=== PATIENT | female | born 1965 | race Caucasian/White ===

== ENCOUNTER 2018-02-01 16:21 | Inpatient (IN) | payer MEDICAID, OTHER ==
[2018-02-01] MEDS: LORAZEPAM 2 MG INJ IV ×2 (16:55→20:32)
[2018-02-01] MEDS: KETOROLAC 30 MG INJ IV (16:55)
[2018-02-01 17:04] LABS: ADD MAN DIFF? NO
[2018-02-01 17:14] LABS: WHITE BLOOD COUNT 9.4 10^3/ul (4.8-10.8)
[2018-02-01 17:14] LABS: BASOPHILS % 0.2 % (0.0-2.0); EOSINOPHILS % 0.1 % (0.0-7.0); HEMATOCRIT 34.4 % (37.0-47.0); HEMOGLOBIN 10.1 g/dl (12.0-16.0); LYMPHOCYTES % 10.2 % (15.0-51.0); MEAN CORPUSCULAR HEMOGLOBIN 24.9 pg (29.0-33.0); MEAN CORPUSCULAR HGB CONC 29.4 g/dl (32.0-37.0); MEAN CORPUSCULAR VOLUME 84.7 fl (82.0-101.0); MEAN PLATELET VOLUME 12.9 fl (7.4-10.4); MONOCYTE # 0.3 10^3/ul (0.3-0.9); MONOCYTES % 2.7 % (0.0-11.0); NEUTROPHIL # 8.1 10^3/ul (1.6-7.5); NEUTROPHILS % 86.5 % (39.0-77.0); PLATELET COUNT 124 10^3/UL (140-415); RED BLOOD COUNT 4.06 10^6/ul (4.20-5.40); RED CELL DISTRIBUTION WIDTH 17.2 % (11.5-14.5)
[2018-02-01 17:25] LABS: INR 1.17; PROTIME 15.1 Sec (11.9-14.9); PT RATIO 1.2
[2018-02-01 17:26] LABS: PARTIAL THROMBOPLASTIN TIME 33.1 Sec (25.0-35.0)
[2018-02-01 17:31] LABS: ALANINE AMINOTRANSFERASE 28 IU/L (13-69); ALBUMIN 4.2 g/dl (3.3-4.9); ALBUMIN/GLOBULIN RATIO 0.85; ALKALINE PHOSPHATASE 173 IU/L (42-121); ASPARTATE AMINO TRANSFERASE 61 IU/L (15-46); BILIRUBIN,INDIRECT 0.5 mg/dl (0-1.1); BILIRUBIN,TOTAL 0.5 mg/dl (0.2-1.3); BLOOD UREA NITROGEN 27 mg/dl (7-20); CALCIUM 9.7 mg/dl (8.4-10.2); CARBON DIOXIDE 18 mmol/L (21-31); CHLORIDE 93 mmol/L (97-110); CREATINE KINASE 41 IU/L (23-200); CREATININE 1.39 mg/dl (0.44-1.00); TOTAL PROTEIN 9.1 g/dl (6.1-8.1)
[2018-02-01 17:41] LABS: B-TYPE NATRIURETIC PEPTIDE 86 PG/ML (0-125); CK INDEX 1.1; CK-MB 0.46 ng/ml (0.0-2.4)
[2018-02-01 17:46] LABS: ANION GAP 23 (8-16); SODIUM 128 mmol/L (135-144); TROPONIN-I < 0.012 ng/ml (0.000-0.120)
[2018-02-01 17:48] LABS: GLUCOSE 1077 mg/dl (70-220); POTASSIUM 5.9 mmol/L (3.5-5.1)
[2018-02-01 18:20] LABS: AADO2 Arterial 28.8 mmHg (7.0-24.0); Allen Test ACCEPTAB; Arterial Base Excess -4.8 mmol/L (-3.0-3); Arterial Blood Gas Oxygen Sat 94.1 mmHG (95.0-98.0); Arterial COHb 0.6 % (0.0-3.0); Arterial Fraction of Oxyhgb 93.3 % (93.0-99.0); Arterial MetHb 0.3 % (0.0-1.5); Arterial Total Hemglobin 9.9 g/dl (12.0-18.0); Arterial pCO2 35.4 mmhg (35-45); MODE ROOM AIR; Site Right Radial
[2018-02-01] MEDS: FUROSEMIDE 40 MG INJ IV (18:22)
[2018-02-01] MEDS: CA CHLORIDE 10% 10 ML SYRINGE IV (18:23)
[2018-02-01] MEDS: SOD CHLORIDE 0.9% 2,000 ML IV (18:23)
[2018-02-01] MEDS: NA BICARBONATE 8.4% 50 ML SYG IV (18:24)
[2018-02-01] MEDS: INSULIN REGULAR, HUMAN 100 UNIT/1 ML 3ML VIAL IV (18:33)
[2018-02-01] MEDS: NA POLYST SULFON 15 GM/60 ML BTL PO (18:34)
[2018-02-01] MEDS: ALBUTEROL 0.5% (NEB) 2.5 MG/0.5 ML AMP INH (18:51)
[2018-02-01] MEDS: INSULIN HUMAN REGULAR 100 UNIT in SOD CHLORIDE 0.9% 99 ML IV (18:54)
[2018-02-01 18:55] LABS: PHOSPHORUS 5.6 mg/dl (2.5-4.9)
[2018-02-01 18:55] LABS: AMYLASE 73 U/L (11-123); LIPASE 591 U/L (23-300); MAGNESIUM 1.9 mg/dl (1.7-2.5)
[2018-02-01 18:58] LABS: LACTIC ACID 2.5 mmol/L (0.5-2.0)
[2018-02-01] MEDS ORDERED: ONDANSETRON 4 MG INJ IV (20:00)
[2018-02-01] MEDS ORDERED: ACETAMINOPHEN 325 MG TAB PO (20:00)
[2018-02-01] MEDS: SODIUM CHLORIDE 0.9% 1L BAG IV* (20:20)
[2018-02-01] MEDS: DIAZEPAM 5 MG/ML SYG IV ×2 (20:21→20:25)
[2018-02-01 21:49] LABS: ADD UMIC NO; UR ASCORBIC ACID NEGATIVE (NEGATIVE); UR BILIRUBIN (Dip) NEGATIVE (NEGATIVE); UR BLOOD (Dip) NEGATIVE (NEGATIVE); UR CLARITY CLEAR (CLEAR); UR COLOR COLORLESS (YELLOW); UR GLUCOSE (Dip) 3+ mg/dL (NEGATIVE); UR KETONES (Dip) NEGATIVE (NEGATIVE); UR LEUKOCYTE ESTERASE (Dip) NEGATIVE Leu/ul (NEGATIVE); UR NITRITE (Dip) NEGATIVE (NEGATIVE); UR SPECIFIC GRAVITY (Dip) 1.011 (1.003-1.030); UR TOTAL PROTEIN (Dip) NEGATIVE (NEGATIVE); UR UROBILINOGEN (Dip) NEGATIVE (NEGATIVE)
[2018-02-01 22:51] LABS: ANION GAP 17 (8-16); BLOOD UREA NITROGEN 25 mg/dl (7-20); CALCIUM 9.3 mg/dl (8.4-10.2); CARBON DIOXIDE 21 mmol/L (21-31); CHLORIDE 103 mmol/L (97-110); CREATININE 1.27 mg/dl (0.44-1.00); SODIUM 137 mmol/L (135-144)
[2018-02-01 23:01] LABS: GLUCOSE 625 mg/dl (70-220)
[2018-02-02] MEDS: ACCU-CHEK XX ×4 (05:00→08:01)
[2018-02-02] MEDS ORDERED: ALBUTEROL/IPRATROPIUM (NEB) 3 ML AMP NEB (05:00)
[2018-02-02] MEDS ORDERED: ONDANSETRON 4 MG INJ IV (05:00)
[2018-02-02] MEDS ORDERED: DEXTROSE 50% 50 ML SYRINGE IV ×4 (05:00→10:30)
[2018-02-02] MEDS ORDERED: morphine 2 MG INJ IV (05:00)
[2018-02-02] MEDS ORDERED: LORAZEPAM 2 MG INJ IV (05:00)
[2018-02-02 06:03] LABS: ADD MAN DIFF? NO
[2018-02-02 06:18] LABS: WHITE BLOOD COUNT 3.3 10^3/ul (4.8-10.8)
[2018-02-02 06:18] LABS: ABNORMAL IP MESSAGE 1; BASOPHILS % 0.3 % (0.0-2.0); EOSINOPHILS # 0.1 10^3/ul (0.0-0.5); EOSINOPHILS % 1.8 % (0.0-7.0); HEMATOCRIT 25.7 % (37.0-47.0); HEMOGLOBIN 7.9 g/dl (12.0-16.0); LYMPHOCYTES # 0.9 10^3/ul (0.8-2.9); MEAN CORPUSCULAR HEMOGLOBIN 25.1 pg (29.0-33.0); MEAN CORPUSCULAR HGB CONC 30.7 g/dl (32.0-37.0); MEAN CORPUSCULAR VOLUME 81.6 fl (82.0-101.0); MEAN PLATELET VOLUME 12.5 fl (7.4-10.4); MONOCYTE # 0.2 10^3/ul (0.3-0.9); MONOCYTES % 4.6 % (0.0-11.0); NEUTROPHIL # 2.1 10^3/ul (1.6-7.5); PLATELET COUNT 73 10^3/UL (140-415); RED BLOOD COUNT 3.15 10^6/ul (4.20-5.40); RED CELL DISTRIBUTION WIDTH 16.9 % (11.5-14.5)
[2018-02-02] MEDS: SOD CHLORIDE 0.9% 1,000 ML IV (06:25)
[2018-02-02] MEDS: INSULIN HUMAN REGULAR 100 UNIT in SOD CHLORIDE 0.9% 99 ML IV (06:26)
[2018-02-02 06:40] LABS: POSITIVE DIFF @See below
[2018-02-02 06:47] LABS: ANION GAP 12 (8-16); BLOOD UREA NITROGEN 19 mg/dl (7-20); CALCIUM 8.8 mg/dl (8.4-10.2); CARBON DIOXIDE 26 mmol/L (21-31); CHLORIDE 112 mmol/L (97-110); CHOL/HDL RATIO 4.9 RATIO; CHOLESTEROL 103 mg/dl (100-200); CREATININE 1.06 mg/dl (0.44-1.00); GLUCOSE 212 mg/dl (70-220); HDL CHOLESTEROL 21 mg/dl (37-92); LDL CHOLESTEROL,CALCULATED 49 mg/dl; POTASSIUM 3.2 mmol/L (3.5-5.1); SODIUM 147 mmol/L (135-144); TRIGLYCERIDES 163 mg/dl (0-149)
[2018-02-02 07:21] LABS: HEMOGLOBIN A1C 11.8 % (0-5.9)
[2018-02-02] MEDS: ENOXAPARIN 40 MG/0.4 ML SYG SC (08:21)
[2018-02-02] MEDS: FAMOTIDINE 20 MG INJ IV (08:21)
[2018-02-02] MEDS ORDERED: GLUCOSE GEL 15 GRAM TUBE PO ×2 (10:30)
[2018-02-02] MEDS ORDERED: GLUCAGON 1 MG INJ IM (10:30)
[2018-02-02] MEDS ORDERED: GLUCOSE GEL 15 GRAM TUBE BUCCAL (10:30)
[2018-02-02] MEDS: AMLODIPINE 10 MG TAB PO (12:13)
[2018-02-02] MEDS: BENAZEPRIL 40 MG TAB PO (12:13)
[2018-02-02] MEDS: INSULIN ASPART [NOVOLOG] 3 ML PEN SC ×2 (12:17→12:20)
[2018-02-02] MEDS: POTASSIUM CHLORIDE 40 MEQ in SOD CHLORIDE 0.45% 980 ML IV (12:45)
[2018-02-02] MEDS: METOPROLOL 25 MG TAB PO (16:03)
[2018-02-02] MEDS ORDERED: metFORMIN 500 MG TAB PO (17:35)
[2018-02-03] MEDS ORDERED: ACCU-CHEK XX (02:00)
[2018-02-03] MEDS ORDERED: INSULIN GLARGINE [LANtus] 3 ML PEN SC (08:00)
== END 2018-02-02 17:45 | disposition home or self-care (01) | DRG 638 ==
LOC: ICU 20:06 → E/R 16:21 → ICU 02-02 05:00
DX: E11.65 Type 2 diabetes mellitus with hyperglycemia (principal); E87.1 Hypo-osmolality and hyponatremia; N17.9 Acute kidney failure, unspecified; E87.5 Hyperkalemia; E66.9 Obesity, unspecified; M62.838 Other muscle spasm; R20.2 Paresthesia of skin; I10 Essential (primary) hypertension; Z68.41 Body mass index [BMI] 40.0-44.9, adult
CPT/HCPCS: 36600; 71045; 73030-RT; 80048; 80053; 80061; 81003; 82150; 82550; 82553; 82803; 82962; 83036; 83605; 83690; 83735; 83880; 84100; 84443; 84484; 85025; 85610; 85730; 87040; 87086; 93005; 94644; 96374; 96375; 96376; 99291-25